=== PATIENT | male | born 1945 | race Caucasian/White ===

== ENCOUNTER 2021-01-17 15:15 | Emergency (ER) | payer BC, MEDICARE ==
[~2021-01-17] VITALS: Ht 172 cm; Wt 74.0 kg
--- NOTE | 2021-01-17 15:49 | ED General ---
General Chief Complaint: General Problems/Pain Stated Complaint: WEAKNESS Nursing Triage Note: Pt reports generalized weakness x1 year, states he called EMS today because he was unable to get out of chair. Source of Information: Patient History of Present Illness Date Seen by Provider: Jan 17, 2021 Time Seen by Provider: 16:49 Initial Comments Patient is a 75-year-old male who presents to the emergency room with a chief complaint of generalized weakness ongoing for about a year. Patient states that this evening he was unable to get out of his chair. His states that over the course of the last several weeks he is gotten increasingly worse. He has been told that he has a "Parkinson syndrome". He has a neurologist that he sees. he is also a patient of Dr. Ernst Leal. He denies any recent illnesses such as fevers, chills, productive cough or shortness of breath. No abdominal pain, nausea, vomiting or diarrhea. No urinary complaints. Denies any unilateral weakness numbness or tingling. No strokelike complaints. No headache. Patient presents with his and she is quite distraught that he is so weak. All other review of systems reviewed and negative except as stated above. Timing/Duration: Constant, Getting Worse Severity: Severe Associated Systoms: Denies Symptoms Allergies and Home Medications Allergies Coded Allergies: No Known Drug Allergies (Unverified , 01/17/21) Patient Home Medication List Home Medication List Reviewed: Yes Review of Systems Review of Systems Constitutional: see HPI EENTM: no symptoms reported Respiratory: no symptoms reported Cardiovascular: no symptoms reported Gastrointestinal: LLQ Genitourinary: no symptoms reported Musculoskeletal: no symptoms reported Skin: no symptoms reported Psychiatric/Neurological: Weakness All Other Systems Reviewed Negative Unless Noted: Yes Past Tehqofq-Ysxcbc-Fomrxc Hx Patient Social History Tobacco Use?: No Substance use?: No Alcohol Use?: Yes Alcohol Frequency: Rarely Pt feels they are or have been: No Immunizations Up To Date First/Initial COVID19 Vaccinat: unknown Second COVID19 Vaccination Geovani: unknown COVID19 Vaccine Clothes Ironer: Moderna Past Medical History Surgery/Hospitalization HX: dx w/ parkinson syndrome 1 year ago Physical Exam Vital Signs Vital Signs - First Documented 01/17/21 15:25 Temp 36.7 Pulse 61 Resp 18 B/P (MAP) 125/77 (93) Pulse Ox 94 O2 Delivery Room Air Capillary Refill : Less Than 3 Seconds Height, Weight, BMI Height: '" Weight: lbs. oz. kg; 25.00 BMI Method: General Appearance: No Apparent Distress, WD/WN Eyes: Bilateral Eye Normal Inspection, Bilateral Eye PERRL HEENT: PERRL/EOMI Neck: Normal Inspection Respiratory: Lungs Clear, Normal Breath Sounds, No Accessory Muscle Use, No Respiratory Distress Cardiovascular: Regular Rate, Rhythm, Normal Peripheral Pulses Gastrointestinal: Normal Bowel Sounds, Non Tender, Soft Extremity: Normal Inspection, Non Tender, No Calf Tenderness, No Pedal Edema Neurologic/Psychiatric: Alert, Oriented x3, No Motor/Sensory Deficits, Normal Mood/Affect, Other (Patient has 5 out of 5 strength in hip flexors bilaterally great dorsiflexion of both feet. Great plantarflexion of both feet. Good home care coordinator 4 out of 5 bilaterally) Skin: Normal Color, Warm/Dry Progress/Results/Core Measures Suspected Sepsis SIRS Temperature: Pulse: 61 Respiratory Rate: 18 Laboratory Tests 01/17/21 15:35: White Blood Count 9.1 Blood Pressure 125 /77 Mean: 93 Laboratory Tests 01/17/21 15:35: Creatinine 0.62, Platelet Count 83L Results/Orders Lab Results Laboratory Tests Test 01/17/21 15:35 01/17/21 16:42 Range/Units White Blood Count 9.1 4.3-11.0 10^3/uL Red Blood Count 4.79 4.30-5.52 10^6/uL Hemoglobin 15.0 13.3-17.7 g/dL Hematocrit 43 40-54 % Mean Corpuscular Volume 90 80-99 fL Mean Corpuscular Hemoglobin 31 25-34 pg Mean Corpuscular Hemoglobin Concent 35 32-36 g/dL Red Cell Distribution Width 15.6 H 10.0-14.5 % Platelet Count 83 L 130-400 10^3/uL Mean Platelet Volume 9.3 9.0-12.2 fL Immature Granulocyte % (Auto) 10 % Neutrophils (%) (Auto) 75 42-75 % Lymphocytes (%) (Auto) 10 L 12-44 % Monocytes (%) (Auto) 4 0-12 % Eosinophils (%) (Auto) 0 0-10 % Basophils (%) (Auto) 1 0-10 % Neutrophils # (Auto) 6.9 1.8-7.8 10^3/uL Lymphocytes # (Auto) 0.9 L 1.0-4.0 10^3/uL Monocytes # (Auto) 0.3 0.0-1.0 10^3/uL Eosinophils # (Auto) 0.0 0.0-0.3 10^3/uL Basophils # (Auto) 0.1 0.0-0.1 10^3/uL Immature Granulocyte # (Auto) 0.9 H 0.0-0.1 10^3/uL Neutrophils % (Manual) 62 % Lymphocytes % (Manual) 9 % Monocytes % (Manual) 4 % Metamyelocytes % 2 % Band Neutrophils 23 % Percent Immature Platelet Fraction 2.5 0.0-7.6 % Anisocytosis SLIGHT Sodium Level 138 135-145 MMOL/L Potassium Level 4.0 3.6-5.0 MMOL/L Chloride Level 101 98-107 MMOL/L Carbon Dioxide Level 24 21-32 MMOL/L Anion Gap 13 5-14 MMOL/L Blood Urea Nitrogen 18 7-18 MG/DL Creatinine 0.62 0.60-1.30 MG/DL Estimat Glomerular Filtration Rate 126 BUN/Creatinine Ratio 29 Glucose Level 124 H 70-105 MG/DL Calcium Level 8.4 L 8.5-10.1 MG/DL Urine Color YELLOW Urine Clarity CLEAR Urine pH 7.0 5-9 Urine Specific Orange 1.020 1.016-1.022 Urine Protein NEGATIVE NEGATIVE Urine Glucose (UA) NEGATIVE NEGATIVE Urine Ketones NEGATIVE NEGATIVE Urine Nitrite NEGATIVE NEGATIVE Urine Bilirubin NEGATIVE NEGATIVE Urine Urobilinogen 4.0 < = 1.0 MG/DL Urine Leukocyte Esterase NEGATIVE NEGATIVE Urine RBC (Auto) NEGATIVE NEGATIVE Urine RBC NONE /HPF Urine WBC NONE /HPF Urine Crystals PRESENT H /LPF Urine Amorphous Sediment MOD TRACIE PHOSPHATE H /LPF Urine Bacteria MODERATE H /HPF Urine Casts NONE /LPF Urine Mucus NEGATIVE /LPF Urine Culture Indicated NO My Orders Orders - SATURNINO PAULINO MD Ed Iv/Invasive Line Start (01/17/21 15:48) Cbc With Automated Diff (01/17/21 15:48) Basic Metabolic Panel (01/17/21 15:48) Ekg Tracing (01/17/21 15:48) Chest 1 View, Ap/Pa Only (01/17/21 15:48) Ua Culture If Indicated (01/17/21 15:48) Manual Differential (01/17/21 15:35) Vital Signs/I&O 01/17/21 01/17/21 15:25 18:08 Temp 36.7 36.7 Pulse 61 58 Resp 18 18 B/P (MAP) 125/77 (93) 111/73 (93) Pulse Ox 94 97 O2 Delivery Room Air Room Air Capillary Refill : Less Than 3 Seconds Blood Pressure Mean: 93 Progress Note : Time: 17:20 Progress Note Long discussion with Dr. Styles regarding the evaluation and management of this patient with generalized weakness. Evaluation today includes a physical exam, CBC, chemistry, urinalysis, EKG and chest x-ray. No clinical or objective findings are found to indicate that this patient needs admission to the hospital acutely at this time. I talked with Dr. Styles about mcc placement. There are no bed availability's at this time at [facility] or [facility]. She recommended [facility] or [facility] agencies for assistance with daily living. She also recommended that the family look into home health. They will need to follow-up with Dr. Leal on Wednesday. There are no beds at this time at the hospital for acute admission in this patient with no acute medical abnormalities. ECG Initial ECG Impression Date: Jan 17, 2021 Initial ECG Impression Time: 16:10 Initial ECG Rate: 58 Initial ECG Rhythm: Normal Sinus Initial ECG Intervals: Normal Initial ECG Impression: Normal Diagnostic Imaging Diagonstic Imaging: Xray Plain Films/CT/US/NM/MRI: chest Comments [facility] [place] NAME: [facility] REC#: [id number] PT STATUS: REG ER : 12/01/1936 PHYSICIAN: SATURNINO PAULINO MD ADMIT DATE: 01/17/21/ER Signed Date of Exam:01/17/21 CHEST 1 VIEW, AP/PA ONLY EXAMINATION: Chest 1 view HISTORY: Sepsis. COVID positive. COMPARISON: 01/10/2021. FINDINGS: The lung volumes are normal. Increasing hazy opacities are seen in the mid and lower lungs bilaterally, greatest on the right. No large pleural effusion or pneumothorax is seen. 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 There is calcified aortic atherosclerotic plaque. Left pectoral dual-chamber pacemaker is stable in configuration. No acute osseous abnormality is seen. IMPRESSION: 1. Increasing hazy opacities in the mid and lower lungs bilaterally, greatest on the right. Dictated by: Dictated on workstation # [id number] Dict: 01/17/21 1552 Trans: 01/17/21 1555 CVB [id number] Interpreted by: JOSE GEORGES DO Electronically signed by: JOSE GEORGES DO 01/17/21 1555 Departure Impression Primary Impression: Generalized weakness Disposition: 01 HOME, SELF-CARE Condition: Stable Departure-Patient Inst. Decision time for Depature: 17:23 Referrals: ERNST LEAL MD Patient Instructions: Generalized Weakness Add. Discharge Instructions: Please continue your daily home medications as prescribed. Drink plenty of fluids to stay well-hydrated. There are a couple of agencies in [place] one of them is [facility], the second place is [facility]. These facilities provide home health aides. They contract for a certain number of hours weekly. This is an [id number]-eijnoo expense. You can contact these agencies for assistance at home. There are also multiple home health agencies available in [place]. Return to the emergency room for any new, concerning or emergent complaints. Copy Copies To 1: ERNST LEAL MD, KATHRYN M MD Jan 17, 2021 15:49
[2021-01-17 16:03] LABS: BASOPHILS # (AUTO) 0.1 10^3/uL (0.0-0.1); BASOPHILS % (AUTO) 1 % (0-10); EOSINOPHILS % (AUTO) 0 % (0-10); HEMATOCRIT 43 % (40-54); LYMPHOCYTES # (AUTO) 0.9 10^3/uL (1.0-4.0); LYMPHOCYTES % (AUTO) 10 % (12-44); MEAN CORPUSCULAR HEMOGLOBIN 31 pg (25-34); MEAN CORPUSCULAR HGB CONC 35 g/dL (32-36); MEAN CORPUSCULAR VOLUME 90 fL (80-99); MEAN PLATELET VOLUME 9.3 fL (9.0-12.2); MONOCYTES # (AUTO) 0.3 10^3/uL (0.0-1.0); MONOCYTES % (AUTO) 4 % (0-12); NEUTROPHILS # (AUTO) 6.9 10^3/uL (1.8-7.8); NEUTROPHILS % (AUTO) 75 % (42-75); PLATELET COUNT 83 10^3/uL (130-400); WHITE BLOOD COUNT 9.1 10^3/uL (4.3-11.0)
[2021-01-17 16:18] LABS: CALCIUM 8.4 MG/DL (8.5-10.1)
[2021-01-17 16:23] LABS: CREATININE SERUM 0.62 MG/DL (0.60-1.30)
[2021-01-17 16:24] LABS: ANISOCYTOSIS SLIGHT; BAND NEUTROPHILS 23 %; LYMPHOCYTES % (MANUAL) 9 %; METAMYELOCYTES % 2 %; MONOCYTES % (MANUAL) 4 %; NEUTROPHILS % (MANUAL) 62 %
--- NOTE | 2021-01-17 16:36 | Diagnostic Imaging Report ---
EXAMINATION: Chest 1 view. HISTORY: Weakness. COMPARISON: None available. FINDINGS: There are small volumes with mild bibasilar atelectasis. Otherwise, the lungs are clear without edema or pneumonia. No pleural effusion or pneumothorax. Heart size is normal. IMPRESSION: Mild atelectasis, otherwise clear lungs. Dictated by: Dictated on workstation # [id number]
[2021-01-17 16:59] LABS: BILIRUBIN,URINE NEGATIVE (NEGATIVE); CLARITY,URINE CLEAR; COLOR,URINE YELLOW; GLUCOSE, URINE (UA) NEGATIVE (NEGATIVE); KETONES,URINE NEGATIVE (NEGATIVE); LEUKOCYTE ESTERASE ,URINE NEGATIVE (NEGATIVE); NITRITE,URINE NEGATIVE (NEGATIVE); PROTEIN,URINE NEGATIVE (NEGATIVE)
[2021-01-17 17:11] LABS: AMORPHOUS SEDIMENT,UR MOD AMOR PHOSPHATE /LPF; BACTERIA,URINE MODERATE /HPF
[2021-01-17 18:08] VITALS: BP 111/73
--- OUTSIDE RECORDS SUMMARY | 2021-01-19 23:59 | XMS REPORT | Encounter Summary ---
[facility] Address Unknown Phone Unavailable Care Team Providers Care Otolaryngology Nurse Name Role Phone PEG PANIAGUA PCP Unavailable Insurance Providers: All historical and current Section Date Range: From patient's date of to the date document was create d. This section includes the names of all active insurance providers for the deepthi rodriguez Insurance Provider Type of Coverage Plan Name Start of Policy Co verage End of Policy Coverage Group Number Member ID Insurance Provider's Telephone N umber Policy Mcdaniel's Name Patient's Relationship to Policy Mcdaniel MEDICARE (WNR) MEDICARE (M) PART A May 14, 2009 PART A [id number] [phone] [place] PATIENT MEDICARE (WNR) MEDICARE (M) PART B May 14, 2009 PART B [id number] [phone] NICOLA CERVANTES PATIENT Selected Encounter This section includes the information on record at [facility] for the Encounter. Date/Time Encounter Type Encounter Description Reason Provider Source Jun 28, 2020 10:30 AM OFFICE O/P EST LOW 20-29 MIN PRIMARY CARE/ MEDICINE ICD-10-CM I10 Essential (primary) hypertension with Provider Comments: Benign essential hypertension (SCT [id number]) PEG PANIAGUA E Encounter Template Text not used by [facility] Assessments - Encounter Diagnoses This section includes the primary and secondary diag noses documented for the Encounter. Date/Time Primary/Secondary Diagnosis Diagnosis Name Provider Source Jun 28, 2020 11:26 AM PRIMARY Essential (primary) hypertension DEBORAH RIOS CB Jun 28, 2020 11:26 AM SECONDARY Gastro-esophageal reflux disease without esophagitis DEBORAH RIOS Jun 28, 2020 11:26 AM SECONDARY Parkinson's disease ELAINE RIOS [facility] Plan of Treatment: Future Appointments (+ 6 months) and Future Tests (+/- 45 day s) The Plan of Treatment section includes future care activities for the patient fr om all [place] treatment facilities. This section includes future appointments and fu ture orders which are active, pending or scheduled. Future Appointments This section includes appointments that were scheduled t o occur 6 months from the date of the Encounter, up to a maximum of 20 appointme nts. The data comes from all [place] treatment facilities. Appointment Date/Time Appointment Type Appointment Facili ty Name Aug 30, 2020 09:00 AM AMBULATORY - MEDICINE [facility] Surgical Procedures: All associated to the encounter No Data Provided for This Section Lab Results: +/- 30 days of the encounter This section includes the Chemistry and Hematology Lab R esults on record with AR for the patient. Radiology Reports and Pathology Report s are provided separately, in subsequent sections. Lab Results This section contains the Chemistry/Hematology Results radha t were resulted 30 days before or 30 days after the date of the Encounter. Date/Time Source Result Type Result - Unit Interpretation Reference Range Comment Jul 12, 2020 11:40 AM [facility] OCCULT BLOOD FIT X1 SCREEN Specimen Type: FECES No comment entered. Ordering Provider: PEG PANIAGUA Report Released Date/Time: Jun 28, 2020 12:43 PM Reporting Lab: [facility] [address] [facility] [phone] Performing Lab: [facility] [address] [facility] [id number] OCCULT BLOOD (FIT) #1 OF 1 Negative Neg ative Jun 28, 2020 11:15 AM [facility] CBC & DIFF Specimen T ype: BLOOD No comment entered. Ordering Provider: PEG PANIAGUA Report Released Date/Time: Jun 18, 2020 02:09 PM Reporting Lab: [facility] [address] [facility] [phone] Performing Lab: [facility] [address] [facility] [phone] WBC 5.0 K/cmm 3.60-11.20 RBC 5.83 M/ul H 4.1-5.7 HGB 17.5 g/dl H 13.1-16.8 HCT 51.0 % H 38.2-48.4 MCV 87.5 fl 80.1-98.5 MCH 30.0 pg 27.0-34.0 MCHC 34.3 g/dl 33.0-36.0 PLATELET COUNT 255 K/cmm 150-400 MPV 9.7 fl 7.5-11.2 RDW 13.2 % 11.8-15.1 LYMPHOCYTES, AUTO% 28.7 % NEUTROPHILS, AUTO % 57.3 % MONOCYTES, AUTO% 7.6 % MONOCYTES, ABSOLUTE 0.4 K/cmm 0.19-0.80 NEUTROPHILS, ABSOLUTE 2.9 K/cmm 2.10-8.0 0 EOSINOPHILS, ABSOLUTE 0.2 K/cmm 0.00-0.6 0 BASOPHILS, ABSOLUTE 0.0 K/cmm 0.00-0.20 EOSINOPHILS, AUTO% 4.6 % BASOPHILS, AUTO% 0.8 % LYMPHOCYTES, ABSOLUTE 1.4 K/cmm 0.77-4.5 0 IMMATURE GRANS, ABSOLUTE 0.05 K/cmm 0.00 -0.05 IMMATURE GRANS, AUTO % 1.0 % Jun 28, 2020 11:15 AM [facility] COMPREHENSIVE METABOLIC PA VITO Specimen Type: PLASMA No comment entered. Ordering Provider: PEG PANIAGUA Report Released Date/Time: Jun 18, 2020 02:09 PM Reporting Lab: [facility] [address] [facility] [phone] Performing Lab: [facility] [address] [facility] [phone] UREA NITROGEN mg/dL 13 mg/dL 9-25 GLUCOSE 101 mg/dL H 70-99 SODIUM 139 mEq/L 136-145 POTASSIUM 4.3 mEq/L 3.5-5 CALCIUM (mg/dL) 8.6 mg/dL 8.4-10.4 PROTEIN,TOTAL 7.7 g/dL 6-8.6 ALBUMIN 3.8 g/dL 3.4-5 TOTAL BILIRUBIN 0.6 mg/dL 0.2-1.2 ASPARTATE TRANSAMINASE 17 U/L 5-34 ALANINE AMINOTRANSFERASE <6 U/L L 8-40 CHLORIDE 104 mEq/L 98-107 CO2 27.0 mEq/L 22-31 ALKALINE PHOSPHATASE 98 U/L 40-150 EGFR 71.8 *CREATININE 1.01 mg/dL 0.70-1.30 ANION GAP 8.3 8-16 Jun 28, 2020 11:15 AM [facility] LIPID PROFILE(HDL,TRIG,CHO L,LDL) Specimen Type: PLASMA No comment entered. Ordering Provider: PEG PANIAGUA Report Released Date/Time: Jun 18, 2020 02:09 PM Reporting Lab: [facility] [address] [facility] [phone] Performing Lab: [facility] [address] [facility] [phone] CHOLESTEROL 201 mg/dL H 0-200 TRIGS 166 mg/dL H 0-150 HDL-CHOLESTEROL 36 mg/dL L > 40 LDL (CALC) 132.0 mg/dL Jun 28, 2020 11:15 AM [facility] TSH Specimen T ype: SERUM No comment entered. Ordering Provider: PEG PANIAGUA Report Released Date/Time: Jun 18, 2020 02:09 PM Reporting Lab: [facility] [address] [facility] [phone] Performing Lab: [facility] [address] [facility] [phone] TSH 1.08 uIU/mL 0.47-5 Jun 28, 2020 11:15 AM [facility] PROSTATIC SPECIFIC ANTIGEN (TOTAL) Specimen Type: SERUM No comment entered. Ordering Provider: PEG PANIAGUA Report Released Date/Time: Jun 18, 2020 02:09 PM Reporting Lab: [facility] [address] [facility] [phone] Performing Lab: [facility] [address] [facility] [phone] PROSTATIC SPECIFIC ANTIGEN(TOTAL) 0.8 ng/mL 0-4 Vital Signs: All taken on the encounter date This section contains inpatient and outpatient Vital Signs collected on the date of the Encounter. Date/Time Temperature Pulse Blood Pressure Respiratory Rate SP02 Pa in Height Weight Body Mass Index Source Jun 28, 2020 11:19 AM 0 [facility] Jun 28, 2020 11:03 AM 97 F 47 /min 118/68 mm[Hg] 18 /min 96 % 68 in 171.1 lb 26 [facility] Immunizations: All administered on the encounter date No Data Provided for This Section Social History: Smoking Status (Most current) and Tobacco Use (All prior to enco unter date) This section includes the most current, and the historical, smoking and tobacco- related health factors from the AR facility where the Encounter took place. Current Smoking Status This section includes the most current smoking, or tobacco -related health factor, from the AR facility where the Encounter took place. Date/Time Current Smoking Status Comment Facility Jun 28, 2020 10:30 AM VA-TOBACCO NEVER USED [facility] Tobacco Use History This section includes a history of the smoking, or tobacco -related health factors, that were collected on or before the date of the Encoun ter. The data comes from the AR facility where the Encounter took place. Date/Time Smoking Status/Tobacco Use Comment [facility] Jun 19, 2019 03:47 PM VA-TOBACCO FORMER USER [facility] Jun 19, 2019 03:47 PM VA-TOBACCO QUIT 15 YRS OR MORE [facility] May 31, 2018 02:18 PM NON-TOBACCO USER [facility] Jun 16, 2017 08:41 AM NON-TOBACCO USER [facility] Jun 03, 2016 09:14 AM CURRENT NON-SMOKER [facility] Jun 03, 2016 09:14 AM LIFETIME NON-TOBACCO USER [facility] Jun 03, 2015 08:48 AM NON-TOBACCO USER [facility] Advance Directives: All historical and current No Data Provided for This Section Radiology Reports: +/- 30 days of the encounter No Data Provided for This Section Pathology Reports: +/- 30 days of the encounter No Data Provided for This Section Encounter Notes: All associated encounter notes This section contains the clinical notes associated to the Encounter. Date/Time Encounter Note(s) Provider Source Jun 28, 2020 11:26 AM MEDICATION MGT NOTE: LOCAL TITLE: WI-MEDICATION RECONCILIATION (BP,O) STANDARD TITLE: MEDICATION MGT NOTE DATE OF NOTE: JUN 28, 2020@11:26 ENTRY DATE: JUN 28, 2020@11:26:40 AUTHOR: PEG PANIAGUA COSIGNER: URGENCY: STATUS: COMPLETED WI-MEDICATION RECONCILIATION (BP,O) Has ADDENDA MEDICATION RECONCILIATION FACILITY ALLERGY/ADR -------- No Remote Allergy/ADR Data available for this patient [facility] 15 No Known Allergies Allergies reviewed, edited in CPRS as appropriate and confirmed by patient: Yes INCLUDED IN THIS LIST: Alphabetical list of active outpatient prescriptions dispensed from this AR (local) and dispensed from another AR or [facility] facility (remote) as well as inpatient orders (local pending and active), local clinic medications, locally documented non-VA medications, and local prescriptions that have or been discontinued in the past 90 days. Non-VA Meds Last Documented On: Jun 28, 2019 NOTE The display of VA prescriptions dispensed from another AR or [facility]D facility (remote) is limited to active outpatient prescription entries matched to National Drug File at the originating site and may not include some items such as investigational drugs, compounds, etc. NOT INCLUDED IN THIS LIST: Medications self-entered by the patient into personal health records (i.e. [employer]) are NOT included in this list. Non-VA medications documented outside this AR, remote inpatient orders (regardless of status) and remote clinic medications are NOT included in this list. The patient and provider must always discuss medications the patient is taking, regardless of where the medication was dispensed or obtained. Non-VA ACETAMINOPHEN 325MG TAB TAKE ONE TABLET BY MOUTH NEEDED Patient wants to buy from Non-VA pharmacy. Medication prescribed by Non-VA provider. Non-VA ASPIRIN 81MG EC TAB TAKE ONE TABLET BY MOUTH ONCE A DAY Patient wants to buy from Non-VA pharmacy. Medication prescribed by Non-VA provider. Non-VA ATENOLOL 50MG TAB TAKE ONE-HALF TABLET BY MOUTH EVERY MORNING Patient wants to buy from Non-VA pharmacy. Medication prescribed by Non-VA provider. Non-VA CARBIDOPA 25/LEVODOPA 100MG TAB TAKE ONE TABLET BY MOUTH ONCE A DAY VA RX: Patient wants to buy from Non-VA pharmacy. VA RX: Medication prescribed by Non-VA provider. Non-VA NIACIN (SLO-NIACIN) 500MG TAB,SA TAKE ONE TABLET BY MOUTH ONCE A DAY Patient wants to buy from Non-VA pharmacy. Medication prescribed by Non-VA provider. Non-VA OMEPRAZOLE 20MG EC CAP TAKE 2 CAPSULES BY MOUTH EVERY MORNING Patient wants to buy from Non-VA pharmacy. Medication prescribed by Non-VA provider. SUPPLIES Patient/family/caregiver educated and evaluated for understanding on Medications. The list was reviewed with and given to the patient/family/caregiver who were also educated on importance of sharing medication list with all VA providers and non-VA providers. For questions, please call your team nurse. Pertinent lab reviewed: N/A. Level of Understanding: Unable to assess /jeffery/ PEG PANIAGUA [facility] Signed: 06/28/2020 11:27 06/28/2020 ADDENDUM STATUS: COMPLETED Patient calls to report that he did not get a stool card at this visit. Informed patient did not need to screen now that he is over 75 unless patient and provider request. Patient would like to continue to screen at this time and do a stool card. Stool card test ordered and will mail. Avg Risk Colorectal Cancer Screen: AVERAGE RISK colorectal cancer screening is due based on information available to this clinical reminder FOBT/FIT (Fecal Immunochemical Testing) has been ordered. See order tab for details. /jeffery/ ELI MAYES STAFF NURSE Signed: 06/28/2020 12:43 Receipt Acknowledged By: * AWAITING SIGNATURE * PEG PANIAGUA MICHAEL B [facility] Jun 28, 2020 11:18 AM PRIMARY CARE PHYSICIAN JULI HAMMONDS NOTE: LOCAL TITLE: CA-GENERAL/PRIMARY CARE STANDARD TITLE: PRIMARY CARE PHYSICIAN OUTPATIENT NOTE DATE OF NOTE: JUN 28, 2020@11:18 ENTRY DATE: JUN 28, 2020@11:19:17 AUTHOR: PEG PANIAGUA EXP COSIGNER: URGENCY: STATUS: COMPLETED WI-PAIN: Pain Reassessment-Patient's updated pain score after intervention is: PAIN Score 0 Pain Documentation: Pain level 3 or less. s. pt. presents to [facility] for cont. medical care, he states he is feeling good, voices no c/o, he states he sees dr. gloria in [place] for pmd, he states he is doing well with present meds., vs stable, hx. unchanged, fasting lab today, to review and update meds. o. affect=pleasant skin=w/d, afebrile general appearance is good, no acute distress no edema noted lower ext. bilat. neuro grossly intact assessment/plan: htn, cont. with atenolol as directed parkinsons disease, cont. with carbidopa/levodpoa as directed GERD, cont. with prilosec as directed fasting lab today, will review when complete, meds. reviewed, updated rtc 12 months for annual exam /jeffery/ PEG PANIAGUA [facility] [place]- Signed: 06/28/2020 11:26 PEG PANIAGUA [facility] Jun 28, 2020 10:55 AM NURSING OUTPATIENT NOTE: LOCAL TITLE: CA-NURSE/[facility] STANDARD TITLE: NURSING OUTPATIENT NOTE DATE OF NOTE: JUN 28, 2020@10:55 ENTRY DATE: JUN 28, 2020@10:55:45 AUTHOR: OTTO TATE EXP COSIGNER: URGENCY: STATUS: COMPLETED Reason for appointment: PCP Appointment Reason for appointment: Other: annual Is the patient diabetic? No - patient is not a diabetic What is your goal for today's visit? *Required Is there anything in your life that worries or stresses you that we may assist you with today? *Required No Are you registered for My Meetmeals ([facility])? No - Are you interested in registering? No If 'yes' please hand [place] My Meetmeals brochure. WI-LATEX REVIEW: Latex review for allergy: ...Patient denies latex allergy. Homelessness/Food Insecurity Screen: In the past 2 months, have you been living in stable housing that you own, rent, or stay in as part of a household? Yes - Living in stable housing. Are you worried or concerned that in the next 2 months you may NOT have stable housing that you own, rent, or stay in as part of a household? No - Not worried about housing near future The reports the following: Within the past 12 months I worried whether my food would run out before I got money to buy more. Never true Within the past 12 months the food I bought just didn't last and I didn't have money to get more. Never true WI-HIV SCREENING (NATIONAL): [place] has viewed the HIV Screening video "One Step Ahead". [place] refused [place] was given the HIV Screening Pamphlet. refused WI-PAIN: Pain Documentation: Pain level 3 or less. WI-FALL RISK OP: BESS FALL SCALE The Bess Fall scale was performed and score was 25. This is indicative of moderate risk for falls. History of falling in past 3 months? No Secondary diagnosis: No Ambulatory aid: Crutches/cane(s)/walker Intravenous therapy/Heparin lock: No Gait/Transferring: Weakness Mental Status: Oriented to own ability/knows own limitations OTHER RISK FACTORS No history of falls and no secondary diagnosis. Patient risk for falling: Medium/High Risk Pamphlet given to patient/family Is patient at risk for falling? Patient is at risk for falling. Will alert provider for follow-up. Is the patient 75 years of age or older? Yes Has the patient had any falls in the past 12 months? No WI-ACOVE GUTIERREZ ADL: ACOVE GUTIERREZ INDEX ADL: Gutierrez Index of [place] in Activities of Daily Living Activities Points (1 or 0) [place] (1 Point) NO supervision, direction or personal assistance Dependence (0 Points) WITH supervision, direction, personal assistance or total care BATHING 1 Points (1 POINT) Bathes self completely or needs help in bathing only a single part of the body such as the back, genital area or disabled extremity (0 POINTS) Need help with bathing more than one part of the body, getting in or out of the tub or shower. Requires total bathing DRESSING 1 Points (1 POINT) Get clothes from closets and drawers and puts on clothes and outer garments complete with fasteners. May have help tying shoes. (0 POINTS) Needs help with dressing self or needs to be completely dressed. TOILETING 1 Points (1 POINT) Goes to toilet, gets on and off, arranges clothes, cleans genital area without help. (0 POINTS) Needs help transferring to the toilet, cleaning self or uses bedpan or commode. TRANSFERRING 1 Points (1 POINT) Moves in and out of bed or chair unassisted. Mechanical transfer aids are acceptable (0 POINTS) Needs help in moving from bed to chair or requires a complete transfer. CONTINENCE 1 Points (1 POINT) Exercises complete self control over urination and defecation. (0 POINTS) Is partially or totally incontinent of FEEDING 1 Points (1 POINT) Gets food from plate into mouth without help. Preparation of food may be done by another person. (0 POINTS) Needs partial or total help with feeding or requires parenteral feeding. 6 Total Points Score of 6 = High, Patient is independent. Score of 0 = Low, patient is very dependent. Slightly adapted. Brenda Ramsey., Floyd TD, Jame, HR, et al. (1970) progress in the development of the index of ADL. Gerontologist 10:20-30. Copyright The Ger[employer] of [place]. Reproduced by permission of the publisher. Depression Screening: Perform PHQ-2 A PHQ-2 screen was performed. The score was 0 which is a negative screen for depression. Over the past two weeks, how often have you been bothered by the following problems? 1. Little interest or pleasure in doing things Not at all 2. Feeling down, depressed, or hopeless Not at all PTSD Screening: PC-PTSD-5 A PTSD screening test (PC-PTSD) was negative (score=0). Have you ever had any experience that was so frightening, horrible or upsetting that, IN THE PAST MONTH, you: Have you ever experienced this kind of event? NO 1. Had nightmares about the event(s) or thought about the event(s) when you did not want to? Response not required due to responses to other questions. 2. Tried hard not to think about the event(s) or went out of your way to avoid situations that reminded you of the event(s)? Response not required due to responses to other questions. 3. Been constantly on guard, watchful, or easily startled? Response not required due to responses to other questions. 4. Ophelia numb or detached from people, activities, or your surroundings? Response not required due to responses to other questions. 5. Ophelia guilty or unable to stop blaming yourself or others for the event(s) or any problems the event(s) may have caused? Response not required due to responses to other questions. Tobacco Use Screening: The patient has never used tobacco. Alcohol Use Screen (AUDIT-C): Alcohol Screen: SCREEN FOR ALCOHOL (AUDIT-C) An alcohol screening test (AUDIT-C) was negative (score=0). 1. How often did you have a drink containing alcohol in the past year? Never 2. How many drinks containing alcohol did you have on a typical day when you were drinking in the past year? Response not required due to responses to other questions. 3. How often did you have six or more drinks on one occasion in the past year? Response not required due to responses to other questions. Pneumococcal PPSV23 (Pneumovax): The patient declines to receive the recommended dose of pneumococcal polysaccharide vaccine PPSV23 (Pneumovax). Suicide Screen: C-SSRS Screening [place] Suicide Severity Rating Scale (C-SSRS) screener 1. Over the past month, have you wished you were or wished you could go to sleep and not wake up? No 2. Over the past month, have you had any actual thoughts of killing yourself? No 3. Over the past month, have you been thinking about how you might do this? Response not required due to responses to other questions. 4. Over the past month, have you had these thoughts and had some intention of acting on them? Response not required due to responses to other questions. 5. Over the past month, have you started to work out or worked out the details of how to kill yourself? Response not required due to responses to other questions. 6. If yes, at any time in the past month did you intend to carry out this plan? Response not required due to responses to other questions. 7. In your lifetime, have you ever done anything, started to do anything, or prepared to do anything to end your life (for example, collected pills, obtained a gun, gave away valuables, went to the roof but didn't jump)? No 8. If YES, was this within the past 3 months? Response not required due to responses to other questions. WI-IADL: IADL [facility] [place] [facility] [place] Instrumental Activities of Daily Living Scale Ability to use telephone: (1 point) Operates Telephone on own initiative; looks up and dials numbers. Shopping: (1 point) Takes care of all shopping needs independently. Food preparation: (1 point) Plans, prepares, and serves adequate meals independently. Housekeeping: (1 point) Maintains house alone with occasional assistance (heavy work). Laundry: (1 point) Does personal laundry completely. Mode of transportation: (1 point) Travels independently on public transportation or drives own car. Responsibility for own medications: (1 point) Is responsible for taking medications in correct dosages at correct times. Ability to handle finances: (1 point) Manages financial matters independently (budgets, writes checks, pays rent and bills, goes to bank); collects and keeps track of income. Total score: 8 points 8 = High function, independent 0 = Low function, dependent /jeffery/ OTTO TATE LPN Signed: 06/28/2020 11:02 OTTO TATE [facility]
--- OUTSIDE RECORDS SUMMARY | 2021-01-19 23:59 | XMS REPORT | Encounter Summary ---
[facility] Address Unknown Phone Unavailable Care Team Providers Care Supervisory Cbp Officer Name Role Phone PEG PANIAGUA PCP Unavailable [...] PART A May 14, 2009 PART A [id number] [phone] NICOLA CERVANTES PATIENT MEDICARE (WNR) MEDICARE (M) PART B May 14, 2009 PART B [id number] 66A [phone] NICOLA CERVANTES PATIENT Selected Encounter This section includes the information on record at [place] for the Encounter. Date/Time Encounter Type Encounter Description Reason Provider Source Jun 27, 2020 01:52 PM Outpatient Encounter ADMIN PAT ACTIVTIES (MAS NONCT) CASI HICKS Encounter Template Text not used by [place] Assessments - Encounter Diagnoses No Data Provided for This Section Plan of Treatment: Future Appointments (+ 6 months) and Future Tests (+/- 45 day s) The Plan of Treatment section includes future care activities for the patient fr om all [place] treatment facilities. This section includes future appointments and fu ture orders which are active, pending or scheduled. Future Appointments This section includes appointments that were scheduled t o occur 6 months from the date of the Encounter, up to a maximum of 20 appointme nts. The data comes from all [place] treatment facilities. Appointment Date/Time Appointment Type Appointment Facili ty Name Jun 28, 2020 10:30 AM AMBULATORY - MEDICINE [facility] Aug 30, 2020 09:00 AM AMBULATORY - MEDICINE [facility] Surgical Procedures: All associated to the encounter No Data Provided for This Section Lab Results: +/- 30 days of the encounter This section includes the Chemistry and Hematology Lab R esults on record with [place] for the patient. Radiology Reports and Pathology Report s are provided separately, in subsequent sections. Lab Results This section contains the Chemistry/Hematology Results radha t were resulted 30 days before or 30 days after the date of the Encounter. Date/Time Source Result Type Result - Unit Interpretation Reference Range Comment Jul 12, 2020 11:40 AM [facility] OCCULT BLOOD FIT X1 SCREEN Specimen Type: FECES No comment entered. Ordering Provider: PEG PANIAGUA Report Released Date/Time: Jun 28, 2020 12:43 PM Reporting Lab: [facility] [place] [facility] [address] [facility] [address] Performing Lab: [facility] [address] [facility] [address] OCCULT BLOOD (FIT) #1 OF 1 Negative Neg ative Jun 28, 2020 11:15 AM [facility] CBC & DIFF Specimen T ype: BLOOD No comment entered. Ordering Provider: PEG PANIAGUA Report Released Date/Time: Jun 18, 2020 02:09 PM Reporting Lab: [facility] [place] [facility] [address] [facility] [address] Performing Lab: [facility] [place] [facility] [address] [facility] [address] WBC 5.0 K/cmm 3.60-11.20 RBC 5.83 M/ul [...] 1.0 % Jun 28, 2020 11:15 AM [facility] COMPREHENSIVE METABOLIC PA VITO Specimen Type: PLASMA No comment entered. Ordering Provider: PEG PANIAGUA Report Released Date/Time: Jun 18, 2020 02:09 PM Reporting Lab: [facility] [place] [address] [facility] [address] Performing Lab: [place] [id number] [facility] [address] UREA NITROGEN mg/dL 13 mg/dL 9-25 GLUCOSE [...] 8.3 8-16 Jun 28, 2020 11:15 AM [facility] LIPID PROFILE(HDL,TRIG,CHO L,LDL) Specimen Type: PLASMA No comment entered. Ordering Provider: PEG PANIAGUA Report Released Date/Time: Jun 18, 2020 02:09 PM Reporting Lab: [facility] [address] [facility] [address] Performing Lab: [facility] [place] [address] [facility] [address] CHOLESTEROL 201 mg/dL H 0-200 TRIGS 166 mg/dL H 0-150 HDL-CHOLESTEROL 36 mg/dL L > 40 LDL (CALC) 132.0 mg/dL Jun 28, 2020 11:15 AM [facility] TSH Specimen T ype: SERUM No comment entered. Ordering Provider: PEG PANIAGUA Report Released Date/Time: Jun 18, 2020 02:09 PM Reporting Lab: [facility] [address] [facility] [address] Performing Lab: [facility] [place] [address] [facility] [address] TSH 1.08 uIU/mL 0.47-5 Jun 28, 2020 11:15 AM [facility] PROSTATIC SPECIFIC ANTIGEN (TOTAL) Specimen Type: SERUM No comment entered. Ordering Provider: PEG PANIAGUA Report Released Date/Time: Jun 18, 2020 02:09 PM Reporting Lab: [facility] [address] [facility] [address] Performing Lab: [facility] [address] [facility] [address] PROSTATIC SPECIFIC ANTIGEN(TOTAL) 0.8 ng/mL 0-4 Vital Signs: All taken on the encounter date No Data Provided for This Section Immunizations: All administered on the encounter date No Data Provided for This Section Social History: Smoking Status (Most current) and Tobacco Use (All prior to enco unter date) This section includes the most current, and the historical, smoking and tobacco- related health factors from the [place] facility where the Encounter took place. Current Smoking Status This section includes the most current smoking, or tobacco -related health factor, from the [place] facility where the Encounter took place. Date/Time Current Smoking Status Comment Facility Jun 19, 2019 03:47 PM VA-TOBACCO QUIT 15 YRS OR MORE [facility] Tobacco Use History This section includes a history of the smoking, or tobacco -related health factors, that were collected on or before the date of the Encoun ter. The data comes from the [place] facility where the Encounter took place. Date/Time Smoking Status/Tobacco Use Comment Carmel thomason Jun 19, 2019 03:47 PM VA-TOBACCO QUIT 15 YRS OR MORE [facility] May 31, 2018 02:18 PM NON-TOBACCO USER [facility] Jun 16, 2017 08:41 AM NON-TOBACCO USER [facility] Jun 03, 2016 09:14 AM CURRENT NON-SMOKER [facility] Jun 03, 2016 09:14 AM LIFETIME NON-TOBACCO USER [facility] Jun 03, 2015 08:48 AM NON-TOBACCO USER [facility] Advance Directives: All historical and current No Data Provided for This Section Radiology Reports: +/- 30 days of the encounter No Data Provided for This Section Pathology Reports: +/- 30 days of the encounter No Data Provided for This Section Encounter Notes: All associated encounter notes This section contains the clinical notes associated to the Encounter. Date/Time Encounter Note(s) Provider Source Jun 27, 2020 01:52 PM ADMINISTRATIVE NOTE: LOCAL TITLE: [place]-COVID-19 SCREENING STANDARD TITLE: ADMINISTRATIVE NOTE DATE OF NOTE: JUN 27, 2020@13:52 ENTRY DATE: JUN 27, 2020@13:53:20 AUTHOR: CASI HICKS EXP COSIGNER: URGENCY: STATUS: COMPLETED Coronavirus Disease 2019 (COVID-19) Screen The patient reports no COVID-19 diagnosis. The patient reports not waiting for the results of a COVID-19 lab test. The patient reports no fever. The patient reports no new or worsening cough or shortness of breath. The patient reports no cold or flu-like symptoms. The patient reports no new onset of diarrhea, nausea or vomiting. The patient reports no new onset of headache, loss of taste or loss of smell. The patient reports no exposure to someone with COVID-19 within the past 2 weeks. Result: Screen is negative. /jeffery/ CASI [facility] BRIDGE MANAGER Signed: 06/27/2020 13:53 CASI HICKS [facility]
--- OUTSIDE RECORDS SUMMARY | 2021-01-19 23:59 | XMS REPORT | Encounter Summary ---
Author [facility] Organization [facility] Address Unknown Phone Unavailable Care Team Providers Care Python Web Developer Name Role Phone PEG PANIAGUA PCP Unavailable [...] PART A May 14, 2009 PART A [id number] [phone] NICOLA CERVANTES PATIENT MEDICARE (WNR) MEDICARE (M) PART B May 14, 2009 PART B [id number] [phone] NICOLA CERVANTES PATIENT Selected Encounter This section includes the information on record at [place] for the Encounter. Date/Time Encounter Type Encounter Description Reason Provider Source Aug 30, 2020 09:00 AM Outpatient Encounter TELEPHONE PRIMARY CAR E ICD-10-CM Z01.812 Encounter for preprocedural laboratory examination with Provider Comments: Lab Result Counseling PEG PANIAGUA Brenda Encounter Template Text not used by [place] Assessments - Encounter Diagnoses This section includes the primary and secondary diag noses documented for the Encounter. Date/Time Primary/Secondary Diagnosis Diagnosis Name Provider Source Aug 30, 2020 09:00 AM PRIMARY Encounter for prep rocedural laboratory examination PEG PANIAGUA [facility] Aug 30, 2020 09:00 AM SECONDARY Other specified counseling PEG MORALES [facility] Aug 30, 2020 09:00 AM SECONDARY Person consulting for explanation of exam or test findings PEG PANIAGUA [facility] Plan of Treatment: Future Appointments (+ 6 months) and Future Tests (+/- 45 day s) No Data Provided for This Section Surgical Procedures: All associated to the encounter No Data Provided for This Section Lab Results: +/- 30 days of the encounter No Data Provided for This Section Vital Signs: All taken on the encounter date No Data Provided for This Section Immunizations: All administered on the encounter date No Data Provided for This Section Social History: Smoking Status (Most current) and Tobacco Use (All prior to enco unter date) This section includes the most current, and the historical, smoking and tobacco- related health factors from the [place] facility where the Encounter took place. Current Smoking Status This section includes the most current smoking, or tobacco -related health factor, from the [place] facility where the Encounter took place. Date/Time Current Smoking Status Comment Facility Jun 28, 2020 10:30 AM VA-TOBACCO NEVER USED [facility] Tobacco Use History This section includes a history of the smoking, or tobacco -related health factors, that were collected on or before the date of the Encoun ter. The data comes from the [place] facility where the Encounter took place. Date/Time Smoking Status/Tobacco Use Comment [facility] Jun 19, 2019 03:47 PM VA-TOBACCO [...] 03, 2015 08:48 AM NON-TOBACCO USER [facility] Advance Directives: All historical and current No Data Provided for This Section Radiology Reports: +/- 30 days of the encounter No Data Provided for This Section Pathology Reports: +/- 30 days of the encounter No Data Provided for This Section Encounter Notes: All associated encounter notes This section contains the clinical notes associated to the Encounter. Date/Time Encounter Note(s) Provider Source Aug 30, 2020 09:34 AM MEDICATION MGT NOTE: LOCAL TITLE: [place]-MEDICATION RECONCILIATION (BP,O) STANDARD TITLE: MEDICATION MGT NOTE DATE OF NOTE: AUG 30, 2020@09:34 ENTRY DATE: AUG 30, 2020@09:34:14 AUTHOR: PEG PANIAGUAIGNER: URGENCY: STATUS: COMPLETED MEDICATION RECONCILIATION FACILITY ALLERGY/ADR -------- No Remote Allergy/ADR Data available for this patient [facility] 15 No Known Allergies Allergies reviewed, edited in CPRS as appropriate and confirmed by patient: Yes INCLUDED IN THIS LIST: Alphabetical list of active outpatient prescriptions dispensed from this [facility] (local) and dispensed from another [place] or [facility] facility (remote) as well as inpatient orders (local pending and active), local clinic medications, locally documented non-VA medications, and local prescriptions that have or been discontinued in the past 90 days. Non-VA Meds Last Documented On: Jun 28, 2019 NOTE The display of VA prescriptions dispensed from another VA or [facility] facility (remote) is limited to active outpatient prescription entries matched to National Drug File at the originating site and may not include some items such as investigational drugs, compounds, etc. NOT INCLUDED IN THIS LIST: Medications self-entered by the patient into personal health records (i.e. [employer]) are NOT included in this list. Non-VA medications documented outside this [place], remote inpatient orders (regardless of status) and [...] call your team nurse. Pertinent lab reviewed: Yes. Level of Understanding: Clifford /jeffery/ PEG PANIAGUA [facility] Signed: 08/30/2020 09:34 PEG PANIAGUA [facility] Aug 30, 2020 09:29 AM NURSE PRACTITIONER TELEPHONE ENCOUNTER NOTE: LOCAL TITLE: [place]-PAINTER HELPER/TELEPHONE STANDARD TITLE: NURSE PRACTITIONER TELEPHONE ENCOUNTER NOTE DATE OF NOTE: AUG 30, 2020@09:29 ENTRY DATE: AUG 30, 2020@09:29:32 AUTHOR: PEG PANIAGUA EXP COSIGNER: URGENCY: STATUS: COMPLETED Depression Screening: Perform PHQ-2 A PHQ-2 screen was performed. The score was 0 which is a negative screen for depression. Over the past two weeks, how often have you been bothered by the following problems? 1. Little interest or pleasure in doing things Not at all 2. Feeling down, depressed, or hopeless Not at all Diagnostic Colonoscopy: (+) FIT/FOBT identified. A diagnostic Colonoscopy is due based on information available to this reminder. Patient declined diagnostic colonoscopy. Patient educated on the risks of a positive colorectal cancer screening test, the potential for colorectal cancer, and the risk of if colorectal cancer is not identfied and treated early. Level of Understanding: Good s. pt. states he is doing good, voices no c/o, he states he cont. to see pmd dr. gloria in [place], [place] pt. states he doesnt want a colonoscopy, he states if he has one done he will be advised per pmd, went over recent lab with pt., sl. elevated lipids, he states he discussed this with pmd and pmd advised pt. he doesnt need any tx. as the lipid medications have too many side effects for pt. age group, /es/ PEG PANIAGUA [facility]- Signed: 08/30/2020 09:34 PEG PANIAGUA [facility]
--- OUTSIDE RECORDS SUMMARY | 2021-01-19 23:59 | XMS REPORT | Encounter Summary ---
Author Author [facility] NICOLA collins Organization [facility] Address Unknown Phone Unavailable Care Team Providers Care Infantry Weapons Crewmember Name Role Phone PEG PANIAGUA PCP Unavailable [...] PART A May 14, 2009 PART A [id number] [phone] NICOLA CERVANTES PATIENT MEDICARE (WNR) MEDICARE (M) PART B May 14, 2009 PART B [id number] [phone] NICOLA CERVANTES PATIENT Selected Encounter This section includes the information on record at [place] for the Encounter. Date/Time Encounter Type Encounter Description Reason Provider Source Jun 28, 2020 12:00 AM Outpatient Encounter EVENT (HISTORICAL) IHE Encounter Template Text not used by [place] Assessments - Encounter Diagnoses No Data Provided for This Section Plan of Treatment: Future Appointments (+ 6 months) and Future Tests (+/- 45 day s) The Plan of Treatment section includes future care activities for the patient fr om all [place] treatment facilities. This section includes future appointments and fu ture orders which are active, pending or scheduled. Future Appointments This section includes appointments that were scheduled t o occur 6 months from the date of the Encounter, up to a maximum of 20 appointme nts. The data comes from all [place] treatment facilities. Appointment Date/Time Appointment Type Appointment Facili ty Name Aug 30, 2020 09:00 AM AMBULATORY - MEDICINE [facility] Surgical Procedures: All associated to the encounter No Data Provided for This Section Lab Results: +/- 30 days of the encounter This section includes the Chemistry and Hematology Lab R esults on record with [place] for the patient. Radiology Reports and Pathology Report s are provided separately, in subsequent sections. Lab Results This section contains the Chemistry/Hematology Results radha t were resulted 30 days before or 30 days after the date of the Encounter. Date/Time Source Result Type Result - Unit Interpretation Reference Range Comment Jul 12, 2020 11:40 AM [facility] OCCULT BLOOD FIT X1 SCREEN Specimen Type: FECES No comment entered. Ordering Provider: PEG PANIAGUA Report Released Date/Time: Jun 28, 2020 12:43 PM Reporting Lab: [facility] [address] [facility] [address] Performing Lab: [facility] [place] [address] [facility] [facility] [address] OCCULT BLOOD (FIT) #1 OF 1 Negative Neg ative Jun 28, 2020 11:15 AM [facility] CBC & DIFF Specimen T ype: BLOOD No comment entered. Ordering Provider: PEG PANIAGUA Report Released Date/Time: Jun 18, 2020 02:09 PM Reporting Lab: [facility] [place] [address] [facility] [address] Performing Lab: [facility] [facility] [address] [facility] [address] WBC 5.0 K/cmm 3.60-11.20 RBC 5.83 M/ul [...] 1.0 % Jun 28, 2020 11:15 AM [facility] COMPREHENSIVE METABOLIC PA VITO Specimen Type: PLASMA No comment entered. Ordering Provider: PEG PANIAGUA Report Released Date/Time: Jun 18, 2020 02:09 PM Reporting Lab: [facility] [place] [id number] [facility] [address] Performing Lab: [facility] CALVERT [address] [address] UREA NITROGEN mg/dL 13 mg/dL 9-25 GLUCOSE [...] 8.3 8-16 Jun 28, 2020 11:15 AM [facility] LIPID PROFILE(HDL,TRIG,CHO L,LDL) Specimen Type: PLASMA No comment entered. Ordering Provider: PEG PANIAGUA Report Released Date/Time: Jun 18, 2020 02:09 PM Reporting Lab: [facility] [place] [id number] [facility] [address] Performing Lab: [facility] [place] [id number] [facility] [address] CHOLESTEROL 201 mg/dL H 0-200 TRIGS 166 mg/dL H 0-150 HDL-CHOLESTEROL 36 mg/dL L > 40 LDL (CALC) 132.0 mg/dL Jun 28, 2020 11:15 AM [facility] TSH Specimen T ype: SERUM No comment entered. Ordering Provider: PEG PANIAGUA Report Released Date/Time: Jun 18, 2020 02:09 PM Reporting Lab: [facility] [place] [facility] [address] [facility] [address] Performing Lab: [facility] [address] [facility] [address] TSH 1.08 uIU/mL 0.47-5 Jun 28, 2020 11:15 AM [facility] PROSTATIC SPECIFIC ANTIGEN (TOTAL) Specimen Type: SERUM No comment entered. Ordering Provider: PEG PANIAGUA Report Released Date/Time: Jun 18, 2020 02:09 PM Reporting Lab: [facility] [place] [address] [facility] [address] Performing Lab: [facility] [address] [facility] [address] PROSTATIC SPECIFIC ANTIGEN(TOTAL) 0.8 ng/mL 0-4 Vital Signs: All taken on the encounter date No Data Provided for This Section Immunizations: All administered on the encounter date No Data Provided for This Section Social History: Smoking Status (Most current) and Tobacco Use (All prior to enco unter date) No Data Provided for This Section Advance Directives: All historical and current No Data Provided for This Section Radiology Reports: +/- 30 days of the encounter No Data Provided for This Section Pathology Reports: +/- 30 days of the encounter No Data Provided for This Section Encounter Notes: All associated encounter notes No Data Provided for This Section
--- OUTSIDE RECORDS SUMMARY | 2021-01-20 | XMS REPORT | Clinical Summary ---
Author Author [facility] Organization [facility] Address Unknown Phone Unavailable Care Team Providers Care Signal Intelligence Analyst Name Role Phone PCP Unavailable Source Comments [facility] (Labor and Delivery) documents do not appear in the [facility] Allergies Not on File Medications Please verify current medications with patient. Not on file Active Problems Not on file Social History Date Tobacco Use Types Packs/Day Years Used Never Assessed Sex Assigned at Date Recorded Not on file Last Filed Vital Signs Not on file Plan of Treatment Health Maintenance Due Date Last Done Comments COVID-19 Vaccine (1) 1957 Pneumococcal Vaccine: 65+ 2009 Years (1 of 1 - PPSV23) Influenza Vaccine (#1) 2021 HPV Vaccine Aged Out No longer eligible based on patient's age to complete this topic Results Not on filefrom Last 3 Months
== END 2021-01-17 18:07 | disposition home or self-care (01) ==
LOC: EDUNIT# 15:15 → ER 15:18
DX: R53.1 Weakness (principal)
CPT/HCPCS: 36415; 51701; 71045; 80048; 81000; 85007; 85027; 93005